=== PATIENT | male | born 1960 | race Caucasian/White ===

== ENCOUNTER 2020-12-17 13:13 | Emergency (ER) | payer BC ==
[~2020-12-17] VITALS: Ht 165.1 cm; Wt 68.0 kg
[2020-12-17] MEDS ORDERED: FLONASE ALLERG9.9 ML NAS (15:03)
[2020-12-17] MEDS ORDERED: ZITHROMAX250 MG PO (15:03)
== END 2020-12-17 15:12 | disposition home or self-care (01) ==
LOC: ED 13:13
DX: J01.90 Acute sinusitis, unspecified (principal); F17.200 Nicotine dependence, unspecified, uncomplicated; Z20.822 Contact with and (suspected) exposure to COVID-19
CPT/HCPCS: 71045; 87502; 99284-25; C9803; U0003

== ENCOUNTER 2021-06-17 13:44 | Emergency (ER) | payer BC ==
[~2021-06-17] VITALS: Ht 165.1 cm; Wt 68.0 kg
[~2021-06-17 13:44] MED LIST: FLONASE ALLERG9.9 ML NAS; ZITHROMAX250 MG PO
[2021-06-17] MEDS ORDERED: ASPIRIN325 MG PO (14:01)
[2021-06-17] MEDS ORDERED: ZITHROMAX250 MG PO (15:53)
[2021-06-17] MEDS ORDERED: PREDNISONE20 MG PO (15:53)
== END 2021-06-17 16:10 | disposition home or self-care (01) ==
LOC: ED 13:44
DX: U07.1 COVID-19 (principal); J44.1 Chronic obstructive pulmonary disease with (acute) exacerbation; F17.200 Nicotine dependence, unspecified, uncomplicated
CPT/HCPCS: 71045; 94640; 99285-25; 99406; C9803; U0003